=== PATIENT | female | born 1985 | race Caucasian/White ===

== ENCOUNTER 2016-03-10 20:40 | Emergency (ER) | payer OTHER ==
--- NOTE | 2016-03-10 23:22 | DIAGNOSTIC IMAGING REPORT ---
PROCEDURE: CT ABD/PELVIS WITH CONTRAST CLINICAL INDICATION: Abdominal pain and vaginal bleeding, initial encounter. TECHNIQUE: 125 ml of Isovue 300 were injected intravenously and axial images were obtained of the entire abdomen and pelvis with sagittal and coronal reformations. COMPARISON: Pelvic ultrasound 02/24/2015 FINDINGS: ABDOMEN: Lung bases are clear. Heart size is normal. Stomach distended with gastric contents. There is a some prominence of the duodenal sweep. Liver, gallbladder, pancreas, spleen, adrenal glands, kidneys and abdominal aorta are normal. Stool throughout the large bowel. Nonspecific air fluid levels in the small bowel. PELVIS: Appendix is difficult to visualize but appears normal. Obstipation. Uterus, adnexa and bladder are normal. No inflammatory changes or free fluid. Bilateral L5 spondylolysis. IMPRESSION: 1. Distended stomach 2. Obstipation 3. Results discussed with Dr. Lopez All CT scans at this facility use dose modulation, iterative reconstruction, and/or weight-based dosing when appropriate to reduce radiation dose to as low as reasonably achievable.
--- NOTE | 2016-03-11 01:51 | ED ORDER SUMMARY ---
..... Patient: PRAVEEN KISER OrderSheet [facility] VisitID: [id number] [place] [address] 31y, F Registration Date/Time: 03/10/2016 ORDER SHEET Weight: 63.5 kg (stated) Allergies: Morphine and Related GENERAL ORDERS: CBC w Diff Urgent (21:23 03/10/2016 Bev NEWBY) (Ack 21:29 [employer] ER Tech1) (21:33 Daniele R.N.) CMP Urgent (21:03/10/2016 Bev NEWBY) (Ack 21:29 [employer] ER Tech1) (21:33 Daniele R.N.) UA-Culture if indicated Urgent (21:03/10/2016 Bev NEWBY) (Ack 21:29 [employer] ER Tech1) (21:33 Daniele R.N.) Urine Urgent (21:03/10/2016 Bev NEWBY) (Cancelled: Duplicate Order21:24 Bev NEWBY) Urine Drug Screen Urgent (21:23 03/10/2016 Bev NEWBY) (Ack 21:29 [employer] ER Tech1) (21:33 Daniele R.N.) Type & Rh Urgent (21:24 03/10/2016 Bev NEWBY) (Ack 21:30 [employer] ER Tech1) (21:32 Daniele R.N.) Serum Quantitative Urgent (21:24 03/10/2016 Bev NEWBY) (Ack 21:30 [employer] ER Tech1) (21:32 Daniele R.N.) POC - Urine hCG (21:24 03/10/2016 Bev NEWBY) (21:32 Daniele R.N.) - (RPR - syphilis test) (22:24 03/10/2016 Bev NEWBY) (22:34 [employer] ER Tech1) CT Abd/Pel w Cont (No) (chart) Urgent (22:25 03/10/2016 Bev NEWBY) (Ack 22:35 [employer] ER Tech1) (23:02 MCampbell) GC/Chlamydia (Cervix) (swab) Urgent (02:02 03/11/2016 Bev NEWBY) (Ack 2:07 [employer] ER Tech1) (2:07 AMc[employer] ER Tech1) MEDICATION ORDERS: IV FLUIDS: IV NS : initial bolus none -, then 500 mL/hr for 2h (NOW) (21:23 03/10/2016 Bev NEWBY) (21:35 Daniele R.N.) Dilaudid IV 1 mg + 0.5 mg (NOW) (22:24 03/10/2016 Bev NEWBY) (22:43 Daniele R.N.) Zofran IV 4 mg (NOW) (22:24 03/10/2016 Bev NEWBY) (22:42 Daniele R.N.) Dilaudid IV 0.5 mg (HIGH ALERT MEDICATION, NOW) (23:35 03/10/2016 PAOLAollier R.N. verbal order read back to Bev NEWBY) (Ack 23:36 RCollier R.N.) (23:39 RCollier R.N.) Ceftriaxone IV 1 gm/50mL (NOW) (00:10 03/11/2016 Bev NEWBY) (Ack 0:16 RCollier R.N.) (0:24 RCollier R.N.) ORDER SHEET NOTES: [Electronically signed by Alize Cornelius R.N. (02:11 03/11/2016)] [Electronically signed by Joselo Lopez MD (16:43 03/11/2016)] [Electronically locked/signed by Alize Cornelius R.N. (02:11 03/11/2016)]
--- NOTE | 2016-03-11 01:51 | ED NURSING NOTES ---
Clinical Report - Nurses [facility] [address] [place] [address] 03/10/2016 20:41 Patient: PRAVEEN KISER TRIAGE Triage time 20:45 Mar 10 2016. Acuity: LEVEL 3. Chief Complaint: ABDOMINAL PAIN, POSSIBLE CONTRACTIONS and VAGINAL BLEEDING. Alert. LYDIA COMA SCORE: Lydia Coma Scale: 15- eyes open spontaneously (4); best verbal response- oriented x 4 (5); best motor response- obeys commands (6). --20:56 Lon Shields R.N. 20:49 03/10/16. BP: 123/70. HR: 86. RR: 18. O2 saturation: 99% on room air. Temp: 99.1 F. Pain level now: 5/10. Additional comments: Abd cramping. --20:56 Lon Shields R.N. Weight: 63.5 kg stated. Height/Length: 63 inches Per Patient. BMI: 24.8. --20:51 Lon Shields R.N. Medications Vitamins Oral. --20:53 Lon Shields R.N. Allergies Morphine and Related.(itching) --20:54 Lon Shields R.N. Medication/allergy information source: the patient. --20:56 Lon Shields R.N. History Arrived by private vehicle. Historian: patient. Unaccompanied. Primary physician (Raudel Nicholson). ( Pt states that she is 8 weeks and is starting to have abdominal cramping and vaginal bleeding.). Onset. (about 1 hour ago). She has had vomiting (yesterday). Treatment ELECTRICAL RESEARCH ENGINEER: None. PAST MEDICAL HX: There are no known risks or problems associated with current . SOCIAL HX: Light tobacco smoker (cigarette)- less than 1/2 a pack per day. No alcohol use or drug use. No infectious disease exposure. ABUSE ASSESSMENT: No report of abuse. FALL RISK ASSESSMENT: Fall risk assessment completed. No fall risk identified. NUTRITIONAL RISK ASSESSMENT: The nutritional risk assessment revealed no deficiencies. FUNCTIONAL ASSESSMENT: Functional assessment: no impairments noted. LEARNING NEEDS ASSESSMENT: The learning needs assessment revealed no barriers. SKIN INTEGRITY ASSESSMENT: Skin integrity risk assessment completed. No skin integrity risk identified. --20:56 Lon Shields R.N. PROBLEMS: Induced Hypertension. Lumbar Strain. Abdominal Muscle Strain. Kidney Infection. UTI - Urinary Tract Infection. --20:55 Lon Shields R.N. ADDITIONAL SURGERIES: . --20:56 Lon Shields R.N. Interventions ID band on patient. To treatment room. No allergy band on patient. --20:56 Lon Shields R.N. PHYSICAL ASSESSMENT To room via stretcher. GENERAL / NEURO / PSYCH: Alert. Oriented X 4. HEENT: Mucous membranes are pink. RESPIRATORY: Respirations not labored. CVS: Normal heart rate and rhythm. Capillary refill less than 2 seconds. GI / : Abdomen soft. Vaginal bleeding present with clots. SKIN: Skin is warm and dry. --20:57 Lon Shields R.N. NURSING PROGRESS NOTES Reassurance given to the patient. Patient identifiers checked. Call light placed in reach. Side rails up x 2. Bed placed in lowest position. Brakes of bed on. Patient ready for evaluation- chart flagged and ED physician notified. --20:58 Lon Shields R.N. 21:15 03/10/2016 Site #1 started via IV in the right forearm with an 20g angiocath, with aseptic technique and good blood return; two attempts. Blood drawn: rainbow set. Labeled in the presence of the patient and sent to the lab. Saline lock flushed with 10 mL saline. --21:34 Lon Shields R.N. 21:30 03/10/2016 Started bag #1 1000 mL IV Fluids IV NS (Saline); at 500 mL/hr over 2 hour(s) via site #1 via IV pump. Allergies verified and confirmed 5 rights. IV patency established. IV site checked: no pain, redness, or swelling. IV flushed thoroughly pre- and post-medication administration. --21:35 Lon Shields R.N. 8 fr in/out catheterization. During procedure hand hygiene observed and sterile equipment and aseptic technique used. Return of 175 mL kat-colored clear urine. It was a complicated placement. She tolerated procedure well. Patient ID band checked for patient name and birthdate: patient confirmed. Catheterized urine collected with return of kat-colored clear urine; sample sent to lab. Specimen labeled in the presence of the patient. --21:36 Alize Cornelius R.N. Urine test negative. loss control consultant check passed. --21:36 Alize Cornelius R.N. 22:33 03/10/16. Temp: 98.9 F. --22:33 Lon Shields R.N. 22:00 03/10/16. PELVIC EXAM: Pelvic exam performed by ED physician. Assisted by one nurse. Preparation: patient placed in lithotomy position. Procedure: speculum exam. Status post-procedure: she was stable. Total time of assist / procedure: 15 minutes. ( EDMD had to postpone collection of specimens due to increased pain level and intolerance to exam by pt.). --00:15 Alize Cornelius R.N. 22:37 03/10/2016 Zofran (Ondansetron HCl) IVP 4 mg given. via site #1. Allergies verified and confirmed 5 rights. IV patency established. IV site checked: no pain, redness, or swelling. IV flushed thoroughly pre- and post-medication administration. IVP given by RN. --22:42 Lon Shields R.N. 22:42 03/10/2016 Dilaudid (HYDROmorphone HCl PF) IVP 1 mg given over 2 minute(s) via site #1. Allergies verified, confirmed 5 rights and sedative warning given. IV patency established. IV site checked: no pain, redness, or swelling. IV flushed thoroughly pre- and post-medication administration. IVP given by RN. --22:43 Lon Shields R.N. Patient transported to [place] by stretcher with tech. --22:45 Lon Shields R.N. Care transferred and report received. --23:35 Alize Cornelius R.N. 23:39 03/10/2016 Dilaudid (HYDROmorphone HCl PF) IVP 0.5 mg given over 30 minute(s) via site #1. Allergies verified, confirmed 5 rights and sedative warning given to the patient. IV patency established. IV site checked: no pain, redness, or swelling. IV flushed thoroughly pre- and post-medication administration. IVP given by RN. --23:39 Alize Cornelius R.N. 00:12-. PELVIC EXAM: Pelvic exam performed by ED physician. Assisted by one nurse. Preparation: patient placed in lithotomy position. Procedure: speculum and bimanual exam. Few genital lesions noted. Light amount of dark vaginal bleeding noted with clots. Specimens collected and sent to lab: GC and chlamydia. Status post-procedure: she was stable. Total time of assist / procedure: 15 minutes. --00:13 Alize Cornelius R.N. 00:15- pt ambulates to restroom and back to bed with stable gait and in no apparent distress. --00:16 Alize Cornelius R.N. 00:20 03/11/2016 Started 1 gm of Ceftriaxone IVPB in bag #1 50 mL; at 150 mL/hr over 20 minute(s) via site #1 via IV pump. Allergies verified and confirmed 5 rights. IV patency established. IV site checked: no pain, redness, or swelling. IV flushed thoroughly pre- and post-medication administration. --00:24 Alize Cornelius R.N. 00:25 03/11/16. BP: 115/64. HR: 73. RR: 15. O2 saturation: 98% on room air. Godwin-Sanz pain scale: 2/10. --00:25 Alize Cornelius R.N. DISPOSITION / DISCHARGE Condition at departure: improved and stable. No learning barriers present. Discharge instructions provided and reviewed with the patient. Reviewed medication(s) side effects, precautions, dosing and course information. Prescription(s) given to the patient. Patient verbalized understanding. Written instructions provided in Cuban. The patient was discharged home. She left the Emergency Department ambulatory and via ([employer]). --02:08 Alize Cornelius R.N. 02:05 03/11/16. BP: 108/61. HR: 90. RR: 14. O2 saturation: 98% on room air. Temp: 98.6 F (oral). Godwin-Sanz pain scale: 2/10. --02:08 Alize Cornelius R.N. 01:57 03/11/2016 Site #1 removed upon discharge. Catheter intact. Manual pressure and bandage applied. --02:11 Alize Cornelius R.N. Locked/Released at 03/11/2016 2:11 by Alize Cornelius R.N.
--- NOTE | 2016-03-11 01:51 | ED NURSING NOTES ---
Clinical Report - Nurses [facility] [address] [place] [address] 03/10/2016 20:41 Patient: PRAVEEN KISER TRIAGE Triage time 20:45 Mar 10 2016. Acuity: LEVEL 3. Chief Complaint: ABDOMINAL PAIN, POSSIBLE CONTRACTIONS and VAGINAL BLEEDING. Alert. LYDIA COMA SCORE: Lydia Coma Scale: 15- eyes open spontaneously (4); best verbal response- oriented x 4 (5); best motor response- obeys commands (6). --20:56 Lon Shields R.N. 20:49 03/10/16. BP: 123/70. HR: 86. RR: 18. O2 saturation: 99% on room air. Temp: 99.1 F. Pain level now: 5/10. Additional comments: Abd cramping. --20:56 Lon Shields R.N. Weight: 63.5 kg stated. Height/Length: 63 inches Per Patient. BMI: 24.8. --20:51 Lon Shields R.N. Medications Vitamins Oral. --20:53 Lon Shields R.N. Allergies Morphine and Related.(itching) --20:54 Lon Shields R.N. Medication/allergy information source: the patient. --20:56 Lon Shields R.N. History Arrived by private vehicle. Historian: patient. Unaccompanied. Primary physician (Raudel Nicholson). ( Pt states that she is 8 weeks and is starting to have abdominal cramping and vaginal bleeding.). Onset. (about 1 hour ago). She has had vomiting (yesterday). Treatment ENGINEERING SYSTEMS ANALYST: None. PAST MEDICAL HX: There are no known risks or problems associated with current . SOCIAL HX: Light tobacco smoker (cigarette)- less than 1/2 a pack per day. No alcohol use or drug use. No infectious disease exposure. ABUSE ASSESSMENT: No report of abuse. FALL RISK ASSESSMENT: Fall risk assessment completed. No fall risk identified. NUTRITIONAL RISK ASSESSMENT: The nutritional risk assessment revealed no deficiencies. FUNCTIONAL ASSESSMENT: Functional assessment: no impairments noted. LEARNING NEEDS ASSESSMENT: The learning needs assessment revealed no barriers. SKIN INTEGRITY ASSESSMENT: Skin integrity risk assessment completed. No skin integrity risk identified. --20:56 Lon Shields R.N. PROBLEMS: Induced Hypertension. Lumbar Strain. Abdominal Muscle Strain. Kidney Infection. UTI - Urinary Tract Infection. --20:55 Lon Shields R.N. ADDITIONAL SURGERIES: . --20:56 Lon Shields R.N. Interventions ID band on patient. To treatment room. No allergy band on patient. --20:56 Lon Shields R.N. PHYSICAL ASSESSMENT To room via stretcher. GENERAL / NEURO / PSYCH: Alert. Oriented X 4. HEENT: Mucous membranes are pink. RESPIRATORY: Respirations not labored. CVS: Normal heart rate and rhythm. Capillary refill less than 2 seconds. GI / : Abdomen soft. Vaginal bleeding present with clots. SKIN: Skin is warm and dry. --20:57 Lon Shields R.N. NURSING PROGRESS NOTES Reassurance given to the patient. Patient identifiers checked. Call light placed in reach. Side rails up x 2. Bed placed in lowest position. Brakes of bed on. Patient ready for evaluation- chart flagged and ED physician notified. --20:58 Lon Shields R.N. 21:15 03/10/2016 Site #1 started via IV in the right forearm with an 20g angiocath, with aseptic technique and good blood return; two attempts. Blood drawn: rainbow set. Labeled in the presence of the patient and sent to the lab. Saline lock flushed with 10 mL saline. --21:34 Lon Shields R.N. 21:30 03/10/2016 Started bag #1 1000 mL IV Fluids IV NS (Saline); at 500 mL/hr over 2 hour(s) via site #1 via IV pump. Allergies verified and confirmed 5 rights. IV patency established. IV site checked: no pain, redness, or swelling. IV flushed thoroughly pre- and post-medication administration. --21:35 Lon Shields R.N. 8 fr in/out catheterization. During procedure hand hygiene observed and sterile equipment and aseptic technique used. Return of 175 mL kat-colored clear urine. It was a complicated placement. She tolerated procedure well. Patient ID band checked for patient name and birthdate: patient confirmed. Catheterized urine collected with return of kat-colored clear urine; sample sent to lab. Specimen labeled in the presence of the patient. --21:36 Alize Cornelius R.N. Urine test negative. group controller check passed. --21:36 Alize Cornelius R.N. 22:33 03/10/16. Temp: 98.9 F. --22:33 Lon Shields R.N. 22:00 03/10/16. PELVIC EXAM: Pelvic exam performed by ED physician. Assisted by one nurse. Preparation: patient placed in lithotomy position. Procedure: speculum exam. Status post-procedure: she was stable. Total time of assist / procedure: 15 minutes. ( EDMD had to postpone collection of specimens due to increased pain level and intolerance to exam by pt.). --00:15 Alize Cornelius R.N. 22:37 03/10/2016 Zofran (Ondansetron HCl) IVP 4 mg given. via site #1. Allergies verified and confirmed 5 rights. IV patency established. IV site checked: no pain, redness, or swelling. IV flushed thoroughly pre- and post-medication administration. IVP given by RN. --22:42 Lon Shields R.N. 22:42 03/10/2016 Dilaudid (HYDROmorphone HCl PF) IVP 1 mg given over 2 minute(s) via site #1. Allergies verified, confirmed 5 rights and sedative warning given. IV patency established. IV site checked: no pain, redness, or swelling. IV flushed thoroughly pre- and post-medication administration. IVP given by RN. --22:43 Lon Shields R.N. Patient transported to [place] by stretcher with tech. --22:45 Lon Shields R.N. Care transferred and report received. --23:35 Alize Cornelius R.N. 23:39 03/10/2016 Dilaudid (HYDROmorphone HCl PF) IVP 0.5 mg given over 30 minute(s) via site #1. Allergies verified, confirmed 5 rights and sedative warning given to the patient. IV patency established. IV site checked: no pain, redness, or swelling. IV flushed thoroughly pre- and post-medication administration. IVP given by RN. --23:39 Alize Cornelius R.N. 00:12-. PELVIC EXAM: Pelvic exam performed by ED physician. Assisted by one nurse. Preparation: patient placed in lithotomy position. Procedure: speculum and bimanual exam. Few genital lesions noted. Light amount of dark vaginal bleeding noted with clots. Specimens collected and sent to lab: GC and chlamydia. Status post-procedure: she was stable. Total time of assist / procedure: 15 minutes. --00:13 Alize Cornelius R.N. 00:15- pt ambulates to restroom and back to bed with stable gait and in no apparent distress. --00:16 Alize Cornelius R.N. 00:20 03/11/2016 Started 1 gm of Ceftriaxone IVPB in bag #1 50 mL; at 150 mL/hr over 20 minute(s) via site #1 via IV pump. Allergies verified and confirmed 5 rights. IV patency established. IV site checked: no pain, redness, or swelling. IV flushed thoroughly pre- and post-medication administration. --00:24 Alize Cornelius R.N. 00:25 03/11/16. BP: 115/64. HR: 73. RR: 15. O2 saturation: 98% on room air. Godwin-Sanz pain scale: 2/10. --00:25 Alize Cornelius R.N. DISPOSITION / DISCHARGE Condition at departure: improved and stable. No learning barriers present. Discharge instructions provided and reviewed with the patient. Reviewed medication(s) side effects, precautions, dosing and course information. Prescription(s) given to the patient. Patient verbalized understanding. Written instructions provided in Nicaraguan. The patient was discharged home. She left the Emergency Department ambulatory and via ([employer]). --02:08 Alize Cornelius R.N. 02:05 03/11/16. BP: 108/61. HR: 90. RR: 14. O2 saturation: 98% on room air. Temp: 98.6 F (oral). Godwin-Sanz pain scale: 2/10. --02:08 Alize Cornelius R.N. 01:57 03/11/2016 Site #1 removed upon discharge. Catheter intact. Manual pressure and bandage applied. --02:11 Alize Cornelius R.N. Locked/Released at 03/11/2016 2:11 by Alize Cornelius R.N.
--- NOTE | 2016-03-11 01:51 | ED ORDER SUMMARY ---
..... Patient: PRAVEEN KISER OrderSheet [facility] VisitID: [id number] [place] [address] 31y, F Registration Date/Time: 03/10/2016 ORDER SHEET Weight: 63.5 kg (stated) Allergies: Morphine and Related GENERAL ORDERS: CBC w Diff Urgent (21:23 03/10/2016 Bev NEWBY) (Ack 21:29 [employer] ER Tech1) (21:33 Daniele R.N.) CMP Urgent (21:03/10/2016 Bev NEWBY) (Ack 21:29 [employer] 2000 ER Tech1) (21:33 Daniele R.N.) UA-Culture if indicated Urgent (21:03/10/2016 Bev NEWBY) (Ack 21:29 [employer] 2000 ER Tech1) (21:33 Daniele R.N.) Urine Urgent (21:03/10/2016 Bev NEWBY) (Cancelled: Duplicate Order21:24 Bev NEWBY) Urine Drug Screen Urgent (21:23 03/10/2016 Bev NEWBY) (Ack 21:29 [employer] 2000 ER Tech1) (21:33 Daniele R.N.) Type & Rh Urgent (21:24 03/10/2016 Bev NEWBY) (Ack 21:30 [employer] 2000 ER Tech1) (21:32 Daniele R.N.) Serum Quantitative Urgent (21:24 03/10/2016 Bev NEWBY) (Ack 21:30 [employer] 2000 ER Tech1) (21:32 Daniele R.N.) POC - Urine hCG (21:24 03/10/2016 Bev NEWBY) (21:32 Daniele R.N.) - (RPR - syphilis test) (22:24 03/10/2016 Bev NEWBY) (22:34 [employer] ER Tech1) CT Abd/Pel w Cont (No) (chart) Urgent (22:25 03/10/2016 Bev NEWBY) (Ack 22:35 [employer] ER Tech1) (23:02 MCampbell) GC/Chlamydia (Cervix) (swab) Urgent (02:02 03/11/2016 Bev NEWBY) (Ack 2:07 [employer] ER Tech1) (2:07 AMcQuoid ER Tech1) MEDICATION ORDERS: IV FLUIDS: IV NS : initial bolus none -, then 500 mL/hr for 2h (NOW) (21:23 03/10/2016 Bev NEWBY) (21:35 Daniele R.N.) Dilaudid IV 1 mg + 0.5 mg (NOW) (22:24 03/10/2016 Bev NEWBY) (22:43 Daniele R.N.) Zofran IV 4 mg (NOW) (22:24 03/10/2016 Bev NEWBY) (22:42 Daniele R.N.) Dilaudid IV 0.5 mg (HIGH ALERT MEDICATION, NOW) (23:35 03/10/2016 PAOLAollier R.N. verbal order read back to Bev NEWBY) (Ack 23:36 RCollier R.N.) (23:39 RCollier R.N.) Ceftriaxone IV 1 gm/50mL (NOW) (00:10 03/11/2016 Bev NEWBY) (Ack 0:16 RCollier R.N.) (0:24 RCollier R.N.) ORDER SHEET NOTES: [Electronically signed by Alize Cornelius R.N. (02:11 03/11/2016)] [Electronically signed by Joselo Lopez MD (16:43 03/11/2016)] [Electronically locked/signed by Alize Cornelius R.N. (02:11 03/11/2016)]
--- NOTE | 2016-03-11 01:51 | ED CLINICAL REPORT ---
Clinical Report - Physicians/Mid Levels [facility] [address] [place] [address] 03/10/2016 20:41 Patient: PRAVEEN KISER Time Seen: 21:05. Arrived- By private vehicle. Historian- patient. HISTORY OF PRESENT ILLNESS Chief Complaint: ABDOMINAL PAIN and Vaginal Bleeding and 8 WEEK . At its maximum, severity described as severe. When seen in the E.D., severity described as severe. This started Mild pain all day. Bleeding and abdominal pain marked increase 1 hour ago; Vomiting - yesterday Fever - 7 days 101 now better associated with respiratory symptoms Pt is concerned that her significant other is unfaithful and that she might have an STD exposure and is still present. It was gradual in onset (recent marked increase). It is described as "pain" and sharp and it is described as located in the lower abdomen. The patient has had nausea. No vomiting. ( Care arrainged: Has not had first visit.). Recent medical care: The patient was seen recently by a health care provider. ( Seen at [facility] - had a positive test there is waiting for her first OB appointment). REVIEW OF SYSTEMS 7. Para 3. Abortions 3. No constipation, black stools, hematemesis, difficulty with urination or pain with urination. No headache, blurred vision, chest pain, difficulty breathing or back pain. The patient has had fever, a cough and skin rash. PAST HISTORY PCP: Bharat (Prov OB) Ops: x 3 Hosp: None Illness: PIH, pre-ecclampsia previously. SOCIAL HISTORY Current some days smoker. History of drug use: methamphetamines. ADDITIONAL NOTES The nursing notes have been reviewed. PHYSICAL EXAM Vital Signs: 03/11/2016 02:05 BP: 108/61. HR: 90. RR: 14. O2 saturation: 98%. Temp: 98.6 F. Godwin-Sanz pain scale: 04/03. 03/11/2016 00:25 BP: 115/64. HR: 73. RR: 15. O2 saturation: 98%. Godwin-Sanz pain scale: 04/03. 03/10/2016 22:33 Temp: 98.9 F. 03/10/2016 20:49 BP: 123/70. HR: 86. RR: 18. O2 saturation: 99%. Temp: 99.1 F. Pain level now: 5/10. Appearance: Patient in severe distress. (Crying). Eyes: Eyes normal inspection. ENT: Pharynx normal. Neck: Normal inspection. CVS: Heart sounds normal. Respiratory: No respiratory distress. Breath sounds normal. Abdomen: Moderate tenderness in the periumbilical area, right lower quadrant and suprapubic area. Guarding present in the right lower quadrant. Rebound tenderness in the right lower quadrant. Back: No CVA tenderness. : Vaginal bleeding, via the cervical os (No active beeding. There is dark blood in the posterior fornix). Severe right adnexal tenderness; uterine tenderness; moderate left adnexal tenderness. 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 Skin: Skin warm. Normal skin color. Skin rash (pick renteria on the face). Extremities: Extremities exhibit normal ROM. No lower extremity edema. LABS, X-RAYS, AND EKG Abdominal CT: PROCEDURE: CT ABD/PELVIS WITH CONTRAST CLINICAL INDICATION: Abdominal pain and vaginal bleeding, initial encounter. TECHNIQUE: 125 ml of Isovue 300 were injected intravenously and axial images were obtained of the entire abdomen and pelvis with sagittal and coronal reformations. COMPARISON: Pelvic ultrasound 02/24/2015 FINDINGS: ABDOMEN: Lung bases are clear. Heart size is normal. Stomach distended with gastric contents. There is a some prominence of the duodenal sweep. Liver, gallbladder, pancreas, spleen, adrenal glands, kidneys and abdominal aorta are normal. Stool throughout the large bowel. Nonspecific air fluid levels in the small bowel. PELVIS: Appendix is difficult to visualize but appears normal. Obstipation. Uterus, adnexa and bladder are normal. No inflammatory changes or free fluid. Bilateral L5 spondylolysis. IMPRESSION: 1. Distended stomach 2. Obstipation 3. Results discussed with Dr. Lopez All CT scans at this facility use dose modulation, iterative reconstruction, and/or weight-based dosing when appropriate to reduce radiation dose to as low as reasonably achievable. Electronically Final signed by:Go Jasso MD 03/10/2016 11:22:29 PM. Laboratory Tests: UA-Culture if indicated: (HEVER: 03/10/2016 21:30) ( MsgRcvd 03/10/2016 22:06) Final results Test Result Flag Units (Reference) URINE COLOR YELLOW URINE APPEARANCE CLEAR URINE GLUCOSE NEGATIVE (NEGATIVE) URINE BILIRUBIN NEGATIVE (NEGATIVE) URINE KETONE TRACE (NEGATIVE) URINE SPECIFIC GRAVITY 1.025 (1.010-1.030) URINE PH 5.5 (5.0-8.0) URINE PROTEIN NEGATIVE (NEGATIVE) URINE UROBILINOGEN 0.2 EU/dL (0.2-1.0) URINE NITRITE NEGATIVE (NEGATIVE) URINE BLOOD NEGATIVE (NEGATIVE) URINE LEUK ESTERASE NEGATIVE (NEGATIVE) URINE RBC 0-1 rbc/hpf (0-1) URINE WBC 3-5 wbc/hpf (0-1) URINE EPITHELIAL CELLS 1-3 EPI/hpf (0-5) URINE BACTERIA TRACE (<1+) (NONE SEEN) URINE COMMENT CULT NOT INDICATED URINE CULTURES ARE SET-UP BASED ON THE FOLLOWING CRITERIA:POSITIVE NITRITEPOSITIVE LEUKOCYTE ESTERASEGREATER THAN 10 WHITE BLOOD CELLSMODERATE (2+) OR GREATER BACTERIA CBC w Diff: (HEVER: 03/10/2016 21:00) ( MsgRcvd 03/10/2016 22:29) Final results Test Result Flag Units (Reference) WHITE BLOOD COUNT 8.3 K/uL (4.5-11.5) RED BLOOD COUNT 3.82 L M/uL (4.00-5.20) HEMOGLOBIN 7.2 L gm/dL (12.0-16.0) HEMATOCRIT 23.2 L % (36.0-46.0) MEAN CELL VOLUME 61 L fL (80-100) MEAN CORPUSCULAR HGB 19 L pg (26-34) MEAN CORPUSCULAR HGB CONC 31 g/dL (31-37) RED CELL DISTRIBUTION WIDTH 20.0 H % (11.6-14.8) PLATELET COUNT 378 K/uL (150-400) LYMPH % 33.3 % (25-40) MONO % 4.4 % (3-14) GRANULOCYTE % 62.3 (53-90) RBC MORPHOLOGY 3+ HYPOCHROMIA~~2+ MICROCYTOSIS~~2+ ANISOCYTOSIS Serum Quantitative: (HEVER: 03/10/2016 21:00) ( MsgRcvd 03/10/2016 22:03) Final results Test Result Flag Units (Reference) BETA HCG, QUANTITATIVE <1 mIU/mL REFERENCE RANGE:Adult Males: <2 mIU/mLNon- Females: <6 mIU/mL Females:Approximate Approximate hCGGestational Age Range (mIU/mL) 0-1 week 0-501-2 weeks 40-3002-3 weeks 100-03788-3 weeks 500-06498-1 months 5,000-200,0002-3 months 10,000-100,0002nd trimester 3,000-50,0003rd trimester 1,000-50,000 Urine Drug Screen: (HEVER: 03/10/2016 21:30) ( MsgRcvd 03/10/2016 22:20) Final results Test Result Flag Units (Reference) AMPHETAMINE/METHAMPHETAMINE POSITIVE H (NEGATIVE) BARBITURATE NEGATIVE (NEGATIVE) BENZODIAZEPINE NEGATIVE (NEGATIVE) CANNABINOID NEGATIVE (NEGATIVE) COCAINE NEGATIVE (NEGATIVE) ECSTASY NEGATIVE (NEGATIVE) METHADONE NEGATIVE (NEGATIVE) OPIATE NEGATIVE (NEGATIVE) The urine drug screen is a qualitative screening test fordrug overdose and abuse. All screen results should beconsidered as presumptive.Drugs screened for are as follows:BenzodiazepinesCocaineAmphetamines/MetamphetaminesTHC (Tetrahydrocannabinol)OpiatesBarbituratesEcstasyMethadonePositive results are unconfirmed. For confirmation, notifythe lab for the specimen to be sent to the reference lab.All confirmations must be performed by a differentmethodology.The ingestion of natural herbal and plant productscontaining Ephedra/Ephedra metabolites can produce in urineone or more substances capable of cross reacting withamphetamine/methamphetamine immunoassays. These testsprovide a preliminary result only. A more specificalternative chemical method must be used to obtain aconfirmed analytical result. CMP: (HEVER: 03/10/2016 21:00) ( MsgRcvd 03/10/2016 21:49) Final results Test Result Flag Units (Reference) GLUCOSE 97 mg/dL (70-110) BUN 15 mg/dL (7-18) CREATININE 0.7 mg/dL (0.6-1.3) Estimated GFR >60 mL/min Estimated GFR- >60 mL/min Note: Persistent reduction over 3 months in eGFR<60 mL/min/1.73 m2 defines CKD. Patients with eGFR values>=60 mL/min/1.73 m2 may also have CKD if evidence ofpersistent proteinuria. Additional information may be foundat www.kidney.org. SODIUM 142 mmol/L (136-145) POTASSIUM 4.0 mmol/L (3.5-5.1) CHLORIDE 110 H mmol/L (98-107) CARBON DIOXIDE 25 mmol/L (21-32) CALCIUM 8.1 L mg/dL (8.5-10.1) TOTAL PROTEIN 7.2 g/dL (6.4-8.2) ALBUMIN 3.0 L g/dL (3.3-5.0) BILIRUBIN, TOTAL 0.2 mg/dL (0.0-1.0) ALKALINE PHOSPHATASE 98 U/L (46-116) AST (SGOT) 21 U/L (15-37) ALT (SGPT) 31 U/L (12-78) Type & Rh: (HEVER: 03/10/2016 21:00) ( MsgRcvd 03/10/2016 21:56) Final results Test Result Flag Units (Reference) PATIENT BLOOD TYPE O Positive . PROGRESS AND PROCEDURES Course of Care: Pre test DDX: Herpes, STD,ectopic, appy The patient is not . She has probably had a miscarriage some time in the last 6-8 weeks Her HCG is 0 so it is not a recent event. She has peritoneal signs. This is most likely PID. It does not appear to be appendicitis. She also has anemia. CLINICAL IMPRESSION Acute abdominal pain of unknown cause. Acute pelvic inflammatory disease. ANEMIA GENITAL LESION. INSTRUCTIONS (YOU MAY HAVE AN STD, I AM TREATING YOU FOR PID RECHECK IN ED IN 12 HOURS UNLESS BETTER. YOU ARE NO LONGER NO SEX UNTIL COMPLETELY HEALED IMMEDIATE RECHECK IF YOU ARE DOING WORSE.). Prescription Medications: Oxycodone/APAP 5 mg/325 mg: take 1 tablet orally every 4 hours as needed for pain. Dispense fifteen (15). No refill. Doxycycline 100 mg: Take 1 capsule orally every 12 hours for 10 days. No refill. Follow-up: Follow up with your doctor in two days. Reason for referral: IF UNABLE COME TO ED. Understanding of the discharge instructions verbalized by patient. (Electronically signed by Joselo Lopez MD 03/11/2016 16:43) Addenda for PRAVEEN KISER VisitID: [id number] Date: 03/10/2016 03/11/2016 2:44 phone number verified for culture results. Pt states to use her number, as listed on face sheet, as her primary contact and her Sig Alfonso Barraza [phone] as secondary. Pt requests that return call back request may be left on voice mail, but that no additional information be given to any one besides her. (Electronically signed by Alize Cornelius R.N. - 03/11/2016 2:44)
--- NOTE | 2016-03-11 16:44 | ED MAR SUMMARY ---
..... Medication Administration Record Formerly [facility] [address] [place] [address] Patient: PRAVEEN KISER Visit ID: [id number] 31y, F Weight: 63.5 kg Height/Length: 63 in BMI: 24.8 ALLERGIES: Morphine and Related Start 21:30 03/10/2016 Lon Shields R.N. Medication Administered: IV NS (SALINE), Dose: IV Fluids over 2 hour(s), Rate: 500 mL/hr, Dispensed: 1000 mL bag, Site: #1 right forearm. Medication Ordered: IV NS : initial bolus none -, then 500 mL/hr for 2h (NOW). Given 22:37 03/10/2016 Lon Shields R.N. Medication Administered: ZOFRAN [IVP] (ONDANSETRON HCL), Dose: 4 mg IVP, Site: #1 right forearm. Medication Ordered: Zofran IV 4 mg (NOW). Given 22:42 03/10/2016 Lon Shields R.N. Medication Administered: DILAUDID [IVP] (HYDROMORPHONE HCL PF), Dose: 1 mg IVP over 2 minute(s), Site: #1 right forearm. Medication Ordered: Dilaudid IV 1 mg + 0.5 mg (NOW). Given 23:39 03/10/2016 Alize Cornelius R.N. Medication Administered: DILAUDID [IVP] (HYDROMORPHONE HCL PF), Dose: 0.5 mg IVP over 30 minute(s), Site: #1 right forearm. Medication Ordered: Dilaudid IV 0.5 mg (HIGH ALERT MEDICATION, NOW). Start 00:20 03/11/2016 Alize Cornelius R.N. Medication Administered: CEFTRIAXONE [IVPB], Dose: 1 gm IVPB over 20 minute(s), Rate: 150 mL/hr, Dispensed: 50 mL bag, Site: #1 right forearm. Medication Ordered: Ceftriaxone IV 1 gm/50mL (NOW).
--- NOTE | 2016-03-11 16:44 | ED MED RECONCILIATION SUMMARY ---
Patient: PRAVEEN KISER Medication Reconciliation Report [facility] VisitID: [id number] [place] [address] 31y, F Registration Date/Time: 03/10/2016 Weight: 63.5 kg Height/Length: 63 in. BMI: 24.8 ALLERGIES: Morphine and Related The patient's Home Medications are listed below: THE FOLLOWING MEDICATIONS NEED TO BE RECONCILED: Vitamins Oral The source(s) of the original Home Medication information: patient The following Medications were given to the patient in the Emergency Department: IV NS IV Fluids bolus 0, then 500 mL/hr, administered: 03/10/2016 9:30:00 PM Zofran [IVP] IVP 4 mg, administered: 03/10/2016 10:37:00 PM Dilaudid [IVP] IVP 1 mg, administered: 03/10/2016 10:42:00 PM Dilaudid [IVP] IVP 0.5 mg, administered: 03/10/2016 11:39:00 PM Ceftriaxone [IVPB] IVPB bolus 0, then 1 gm 150 mL/hr, administered: 03/11/2016 12:20:00 AM The following Medications were prescribed to the patient: Oxycodone/APAP 5 mg/325 mg: take 1 tablet orally every 4 hours as needed for pain. Dispense fifteen (15). No refill. -- Joselo Lopez MD Doxycycline 100 mg: Take 1 capsule orally every 12 hours for 10 days. No refill. -- Joselo Lopez MD
--- NOTE | 2016-03-11 16:44 | ED DISCHARGE INSTRUCTIONS ---
Patient: PRAVEEN KISER General Instructions [facility] VisitID: [id number] [place] [address] 31y, F Registration Date/Time: 03/10/2016 Acute abdominal pain of unknown cause. Acute pelvic inflammatory disease. ANEMIA GENITAL LESION. INSTRUCTIONS (YOU MAY HAVE AN STD, I AM TREATING YOU FOR PID RECHECK IN ED IN 12 HOURS UNLESS BETTER. YOU ARE NO LONGER NO SEX UNTIL COMPLETELY HEALED IMMEDIATE RECHECK IF YOU ARE DOING WORSE.). Prescription Medications: Oxycodone/APAP 5 mg/325 mg: take 1 tablet orally every 4 hours as needed for pain. Dispense fifteen (15). No refill. Doxycycline 100 mg: Take 1 capsule orally every 12 hours for 10 days. No refill. Follow-up: Follow up with your doctor in two days. Reason for referral: IF UNABLE COME TO ED. Understanding of the discharge instructions verbalized by patient. ADDITIONAL INFORMATION Pelvic Inflammatory Disease Pelvic Inflammatory Disease (PID) is an infection of the female organs (uterus, ovary, or Fallopian tubes). This is most often the result of a sexually transmitted disease (STD). Sometimes, PID can be due to an overgrowth of normal bacteria and not caused by an STD. Whatever its cause, PID is a serious problem. It can lead to infertility (inability to become ) unless it is treated promptly. Home Care: Take all of the medicine prescribed, even if you start to feel better before taking all the pills. You may use acetaminophen (Tylenol) or ibuprofen (Motrin, Advil) to control pain, unless another pain medicine was prescribed. [NOTE: If you have chronic liver or kidney disease or ever had a stomach ulcer or GI bleeding, talk with your doctor before using these medicines.] Your sexual partner should contact his own doctor or go to the Public Health Department to be examined. If his test is positive or if he is having symptoms of discharge or burning when passing urine, he should be treated, too. Avoid sexual activity until both you and your partner have finished taking all of the antibiotic medicine, and your doctor has told you that you are cured. Learn about safe sex practices and use these in the future. The safest sex is with a partner who has tested negative and only has sex with you. Condoms offer protection from spreading some sexually transmitted diseases including Gonorrhea, Chlamydia and HIV, but are not a guarantee. Follow Up with your doctor or as advised by our staff. If a culture test was taken, you may call us in three days for the results, or as directed. Another culture test should be taken 4-6 weeks after treatment to be sure the infection has cleared. Follow up with your doctor or the Public Health Department for complete STD screening, including HIV testing. For more information about STD's, contact the National STD Hotline: . Get Prompt Medical Attention if any of the following occur: No improvement after three days of treatment New or increasing lower abdominal pain or back pain Unexpected vaginal bleeding Weakness, dizziness or fainting Repeated vomiting Inability to urinate due to pain Rash or joint pain Painful open sores around the outer vagina Enlarged painful lymph nodes (lumps) in the groin Oxycodone Hydrochloride, Acetaminophen Oral tablet What is this medicine? ACETAMINOPHEN; OXYCODONE (a set a VIVIANA raul fen; ox i KOE done) is a pain reliever. It is used to treat mild to moderate pain. How should I use this medicine? Take this medicine by mouth with a full glass of water. Follow the directions on the prescription label. Take your medicine at regular intervals. Do not take your medicine more often than directed. Talk to your medical physics professor regarding the use of this medicine in children. Special care may be needed. Patients over 65 years old may have a stronger reaction and need a smaller dose. What side effects may I notice from receiving this medicine? Side effects that you should report to your doctor or health medicare contact specialist as soon as possible: allergic reactions like skin rash, itching or hives, swelling of the face, lips, or tongue breathing difficulties, wheezing confusion light headedness or fainting spells severe stomach pain yellowing of the skin or the whites of the eyes Side effects that usually do not require medical attention (report to your doctor or health medicare contact specialist if they continue or are bothersome): dizziness drowsiness nausea vomiting What may interact with this medicine? alcohol antihistamines barbiturates like amobarbital, butalbital, butabarbital, methohexital, pentobarbital, phenobarbital, thiopental, and secobarbital benztropine drugs for bladder problems like solifenacin, trospium, oxybutynin, tolterodine, hyoscyamine, and methscopolamine drugs for breathing problems like ipratropium and tiotropium drugs for certain stomach or intestine problems like propantheline, homatropine methylbromide, glycopyrrolate, atropine, belladonna, and dicyclomine general anesthetics like etomidate, ketamine, nitrous oxide, propofol, desflurane, enflurane, halothane, isoflurane, and sevoflurane medicines for depression, anxiety, or psychotic disturbances medicines for sleep muscle relaxants naltrexone narcotic medicines (opiates) for pain phenothiazines like perphenazine, thioridazine, chlorpromazine, mesoridazine, fluphenazine, prochlorperazine, promazine, and trifluoperazine scopolamine tramadol trihexyphenidyl What if I miss a dose? If you miss a dose, take it as soon as you can. If it is almost time for your next dose, take only that dose. Do not take double or extra doses. Where should I keep my medicine? Keep out of the reach of children. This medicine can be abused. Keep your medicine in a safe place to protect it from theft. Do not share this medicine with anyone. Selling or giving away this medicine is dangerous and against the law. Store at room temperature between 20 and 25 degrees C (68 and 77 degrees F). Keep container tightly closed. Protect from light. This medicine may cause accidental overdose and if it is taken by other adults, children, or pets. Flush any unused medicine down the toilet to reduce the chance of harm. Do not use the medicine after the expiration date. What should I tell my health care provider before I take this medicine? They need to know if you have any of these conditions: brain tumor Crohn's disease, inflammatory bowel disease, or ulcerative colitis drink more than 3 alcohol containing drinks per day drug abuse or addiction head injury heart or circulation problems kidney disease or problems going to the bathroom liver disease lung disease, asthma, or breathing problems an unusual or allergic reaction to acetaminophen, oxycodone, other opioid analgesics, other medicines, foods, dyes, or preservatives or trying to get breast-feeding What should I watch for while using this medicine? Tell your doctor or health medicare contact specialist if your pain does not go away, if it gets worse, or if you have new or a different type of pain. You may develop tolerance to the medicine. Tolerance means that you will need a higher dose of the medication for pain relief. Tolerance is normal and is expected if you take this medicine for a long time. Do not suddenly stop taking your medicine because you may develop a severe reaction. Your body becomes used to the medicine. This does NOT mean you are addicted. Addiction is a behavior related to getting and using a drug for a non-medical reason. If you have pain, you have a medical reason to take pain medicine. Your doctor will tell you how much medicine to take. If your doctor wants you to stop the medicine, the dose will be slowly lowered over time to avoid any side effects. You may get drowsy or dizzy. Do not drive, use machinery, or do anything that needs mental alertness until you know how this medicine affects you. Do not stand or sit up quickly, especially if you are an older patient. This reduces the risk of dizzy or fainting spells. Alcohol may interfere with the effect of this medicine. Avoid alcoholic drinks. There are different types of narcotic medicines (opiates) for pain. If you take more than one type at the same time, you may have more side effects. Give your health care provider a list of all medicines you use. Your doctor will tell you how much medicine to take. Do not take more medicine than directed. Call emergency for help if you have problems breathing. The medicine will cause constipation. Try to have a bowel movement at least every 2 to 3 days. If you do not have a bowel movement for 3 days, call your doctor or health medicare contact specialist. Do not take Tylenol (acetaminophen) or medicines that have acetaminophen with this medicine. Too much acetaminophen can be very dangerous. Many nonprescription medicines contain acetaminophen. Always read the labels carefully to avoid taking more acetaminophen. You have been given the following additional information: Pelvic Inflammatory Disease Oxycodone Hydrochloride, Acetaminophen Oral tablet (Electronically signed by Joselo Lopez MD 03/11/2016 16:43)
--- NOTE | 2016-03-11 16:44 | ED DISCHARGE INSTRUCTIONS ---
Patient: PRAVEEN KISER General Instructions [facility] VisitID: [id number] [place] [address] 31y, F Registration Date/Time: 03/10/2016 Acute abdominal pain of unknown cause. Acute pelvic inflammatory disease. ANEMIA GENITAL LESION. INSTRUCTIONS (YOU MAY HAVE AN STD, I AM TREATING YOU FOR PID RECHECK IN ED IN 12 HOURS UNLESS BETTER. YOU ARE NO LONGER NO SEX UNTIL COMPLETELY HEALED IMMEDIATE RECHECK IF YOU ARE DOING WORSE.). Prescription Medications: Oxycodone/APAP 5 mg/325 mg: take 1 tablet orally every 4 hours as needed for pain. Dispense fifteen (15). No refill. Doxycycline 100 mg: Take 1 capsule orally every 12 hours for 10 days. No refill. Follow-up: Follow up with your doctor in two days. Reason for referral: IF UNABLE COME TO ED. Understanding of the discharge instructions verbalized by patient. ADDITIONAL INFORMATION Pelvic Inflammatory Disease Pelvic Inflammatory Disease (PID) is an infection of the female organs (uterus, ovary, or Fallopian tubes). This is most often the result of a sexually transmitted disease (STD). Sometimes, PID can be due to an overgrowth of normal bacteria and not caused by an STD. Whatever its cause, PID is a serious problem. It can lead to infertility (inability to become ) unless it is treated promptly. Home Care: Take all of the medicine prescribed, even if you start to feel better before taking all the pills. You may use acetaminophen (Tylenol) or ibuprofen (Motrin, Advil) to control pain, unless another pain medicine was prescribed. [NOTE: If you have chronic liver or kidney disease or ever had a stomach ulcer or GI bleeding, talk with your doctor before using these medicines.] Your sexual partner should contact his own doctor or go to the Public Health Department to be examined. If his test is positive or if he is having symptoms of discharge or burning when passing urine, he should be treated, too. Avoid sexual activity until both you and your partner have finished taking all of the antibiotic medicine, and your doctor has told you that you are cured. Learn about safe sex practices and use these in the future. The safest sex is with a partner who has tested negative and only has sex with you. Condoms offer protection from spreading some sexually transmitted diseases including Gonorrhea, Chlamydia and HIV, but are not a guarantee. Follow Up with your doctor or as advised by our staff. If a culture test was taken, you may call us in three days for the results, or as directed. Another culture test should be taken 4-6 weeks after treatment to be sure the infection has cleared. Follow up with your doctor or the Public Health Department for complete STD screening, including HIV testing. For more information about STD's, contact the National STD Hotline: . Get Prompt Medical Attention if any of the following occur: No improvement after three days of treatment New or increasing lower abdominal pain or back pain Unexpected vaginal bleeding Weakness, dizziness or fainting Repeated vomiting Inability to urinate due to pain Rash or joint pain Painful open sores around the outer vagina Enlarged painful lymph nodes (lumps) in the groin Oxycodone Hydrochloride, Acetaminophen Oral tablet What is this medicine? ACETAMINOPHEN; OXYCODONE (a set a VIVIANA raul fen; ox i KOE done) is a pain reliever. It is used to treat mild to moderate pain. How should I use this medicine? Take this medicine by mouth with a full glass of water. Follow the directions on the prescription label. Take your medicine at regular intervals. Do not take your medicine more often than directed. Talk to your ergonomist regarding the use of this medicine in children. Special care may be needed. Patients over 65 years old may have a stronger reaction and need a smaller dose. What side effects may I notice from receiving this medicine? Side effects that you should report to your doctor or health career services manager as soon as possible: allergic reactions like skin rash, itching or hives, swelling of the face, lips, or tongue breathing difficulties, wheezing confusion light headedness or fainting spells severe stomach pain yellowing of the skin or the whites of the eyes Side effects that usually do not require medical attention (report to your doctor or health career services manager if they continue or are bothersome): dizziness drowsiness nausea vomiting What may interact with this medicine? alcohol antihistamines barbiturates like amobarbital, butalbital, butabarbital, methohexital, pentobarbital, phenobarbital, thiopental, and secobarbital benztropine drugs for bladder problems like solifenacin, trospium, oxybutynin, tolterodine, hyoscyamine, and methscopolamine drugs for breathing problems like ipratropium and tiotropium drugs for certain stomach or intestine problems like propantheline, homatropine methylbromide, glycopyrrolate, atropine, belladonna, and dicyclomine general anesthetics like etomidate, ketamine, nitrous oxide, propofol, desflurane, enflurane, halothane, isoflurane, and sevoflurane medicines for depression, anxiety, or psychotic disturbances medicines for sleep muscle relaxants naltrexone narcotic medicines (opiates) for pain phenothiazines like perphenazine, thioridazine, chlorpromazine, mesoridazine, fluphenazine, prochlorperazine, promazine, and trifluoperazine scopolamine tramadol trihexyphenidyl What if I miss a dose? If you miss a dose, take it as soon as you can. If it is almost time for your next dose, take only that dose. Do not take double or extra doses. Where should I keep my medicine? Keep out of the reach of children. This medicine can be abused. Keep your medicine in a safe place to protect it from theft. Do not share this medicine with anyone. Selling or giving away this medicine is dangerous and against the law. Store at room temperature between 20 and 25 degrees C (68 and 77 degrees F). Keep container tightly closed. Protect from light. This medicine may cause accidental overdose and if it is taken by other adults, children, or pets. Flush any unused medicine down the toilet to reduce the chance of harm. Do not use the medicine after the expiration date. What should I tell my health care provider before I take this medicine? They need to know if you have any of these conditions: brain tumor Crohn's disease, inflammatory bowel disease, or ulcerative colitis drink more than 3 alcohol containing drinks per day drug abuse or addiction head injury heart or circulation problems kidney disease or problems going to the bathroom liver disease lung disease, asthma, or breathing problems an unusual or allergic reaction to acetaminophen, oxycodone, other opioid analgesics, other medicines, foods, dyes, or preservatives or trying to get breast-feeding What should I watch for while using this medicine? Tell your doctor or health career services manager if your pain does not go away, if it gets worse, or if you have new or a different type of pain. You may develop tolerance to the medicine. Tolerance means that you will need a higher dose of the medication for pain relief. Tolerance is normal and is expected if you take this medicine for a long time. Do not suddenly stop taking your medicine because you may develop a severe reaction. Your body becomes used to the medicine. This does NOT mean you are addicted. Addiction is a behavior related to getting and using a drug for a non-medical reason. If you have pain, you have a medical reason to take pain medicine. Your doctor will tell you how much medicine to take. If your doctor wants you to stop the medicine, the dose will be slowly lowered over time to avoid any side effects. You may get drowsy or dizzy. Do not drive, use machinery, or do anything that needs mental alertness until you know how this medicine affects you. Do not stand or sit up quickly, especially if you are an older patient. This reduces the risk of dizzy or fainting spells. Alcohol may interfere with the effect of this medicine. Avoid alcoholic drinks. There are different types of narcotic medicines (opiates) for pain. If you take more than one type at the same time, you may have more side effects. Give your health care provider a list of all medicines you use. Your doctor will tell you how much medicine to take. Do not take more medicine than directed. Call emergency for help if you have problems breathing. The medicine will cause constipation. Try to have a bowel movement at least every 2 to 3 days. If you do not have a bowel movement for 3 days, call your doctor or health career services manager. Do not take Tylenol (acetaminophen) or medicines that have acetaminophen with this medicine. Too much acetaminophen can be very dangerous. Many nonprescription medicines contain acetaminophen. Always read the labels carefully to avoid taking more acetaminophen. You have been given the following additional information: Pelvic Inflammatory Disease Oxycodone Hydrochloride, Acetaminophen Oral tablet (Electronically signed by Joselo Lopez MD 03/11/2016 16:43)
--- NOTE | 2016-03-11 16:44 | ED MAR SUMMARY ---
..... Medication Administration Record [facility] [address] [place] [address] Patient: PRAVEEN KISER Visit ID: [id number] 31y, F Weight: 63.5 kg Height/Length: 63 in BMI: 24.8 ALLERGIES: Morphine and Related Start 21:30 03/10/2016 Lon Shields R.N. Medication Administered: IV NS (SALINE), Dose: IV Fluids over 2 hour(s), Rate: 500 mL/hr, Dispensed: 1000 mL bag, Site: #1 right forearm. Medication Ordered: IV NS : initial bolus none -, then 500 mL/hr for 2h (NOW). Given 22:37 03/10/2016 Lon Shields R.N. Medication Administered: ZOFRAN [IVP] (ONDANSETRON HCL), Dose: 4 mg IVP, Site: #1 right forearm. Medication Ordered: Zofran IV 4 mg (NOW). Given 22:42 03/10/2016 Lon Shields R.N. Medication Administered: DILAUDID [IVP] (HYDROMORPHONE HCL PF), Dose: 1 mg IVP over 2 minute(s), Site: #1 right forearm. Medication Ordered: Dilaudid IV 1 mg + 0.5 mg (NOW). Given 23:39 03/10/2016 Alize Cornelius R.N. Medication Administered: DILAUDID [IVP] (HYDROMORPHONE HCL PF), Dose: 0.5 mg IVP over 30 minute(s), Site: #1 right forearm. Medication Ordered: Dilaudid IV 0.5 mg (HIGH ALERT MEDICATION, NOW). Start 00:20 03/11/2016 Alize Cornelius R.N. Medication Administered: CEFTRIAXONE [IVPB], Dose: 1 gm IVPB over 20 minute(s), Rate: 150 mL/hr, Dispensed: 50 mL bag, Site: #1 right forearm. Medication Ordered: Ceftriaxone IV 1 gm/50mL (NOW).
--- NOTE | 2016-03-11 16:44 | ED MED RECONCILIATION SUMMARY ---
Patient: PRAVEEN KISER Medication Reconciliation Report [facility] VisitID: [id number] [place] [address] 31y, F Registration Date/Time: 03/10/2016 Weight: 63.5 kg Height/Length: 63 in. BMI: 24.8 ALLERGIES: Morphine and Related The patient's Home Medications are listed below: THE FOLLOWING MEDICATIONS NEED TO BE RECONCILED: Vitamins Oral The source(s) of the original Home Medication information: patient The following Medications were given to the patient in the Emergency Department: IV NS IV Fluids bolus 0, then 500 mL/hr, administered: 03/10/2016 9:30:00 PM Zofran [IVP] IVP 4 mg, administered: 03/10/2016 10:37:00 PM Dilaudid [IVP] IVP 1 mg, administered: 03/10/2016 10:42:00 PM Dilaudid [IVP] IVP 0.5 mg, administered: 03/10/2016 11:39:00 PM Ceftriaxone [IVPB] IVPB bolus 0, then 1 gm 150 mL/hr, administered: 03/11/2016 12:20:00 AM The following Medications were prescribed to the patient: Oxycodone/APAP 5 mg/325 mg: take 1 tablet orally every 4 hours as needed for pain. Dispense fifteen (15). No refill. -- Joselo Lopez MD Doxycycline 100 mg: Take 1 capsule orally every 12 hours for 10 days. No refill. -- Joselo Lopez MD
== END 2016-03-11 01:57 | disposition home or self-care (01) ==
LOC: ED SRH 20:40
DX: R10.33 Periumbilical pain (principal); R10.31 Right lower quadrant pain; N73.0 Acute parametritis and pelvic cellulitis; D64.9 Anemia, unspecified; N90.89 Other specified noninflammatory disorders of vulva and perineum; F17.200 Nicotine dependence, unspecified, uncomplicated
CPT/HCPCS: 81460; 90001; 90004; 90100; 90155; 90197; 91227; 91228; 92760; 92761; 92762; 92763; 92764; 92765; 92766; 92767; 93070; 95059; 98480

== ENCOUNTER → 2016-08-29 | Emergency (ER) | payer OTHER ==
--- NOTE | 2016-08-29 23:15 | ED NURSING NOTES ---
Clinical Report - Nurses [facility] [address] [place] [address] 08/29/2016 22:36 Patient: PRAVEEN KISER TRIAGE Triage time 22:27. Acuity: LEVEL 4. Chief Complaint: LEFT EAR PAIN. 23:11 08/29/16. Alert. No acute distress. MAGALY COMA SCORE: [place] Coma Scale: 15- eyes open spontaneously (4); best verbal response- oriented x 4 (5); best motor response- obeys commands (6). --23:11 Antonia Fay R.N. 23:03 08/29/16. BP: 113/68 taken on the left arm, while sitting. HR: 76. RR: 15. O2 saturation: 100% on room air. Temp: 98.2 F. Pain level now: 08/01. --23:11 Antonia Fay R.N. Weight: 61.2 kg stated. Height/Length: 63 inches Per Patient. BMI: 23.9. --23:06 Antonia Fay R.N. Medications None. --23:05 Antonia Fay R.N. Allergies Morphine and Related.(itching) --23:05 Antonia Fay R.N. History Arrived by private vehicle. Historian: patient. Onset. (a week ago). ( skin problem on L leg). 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 PAST MEDICAL HX: Immunizations: status is unknown. SOCIAL HX: Heavy tobacco smoker- less than 1 pack per day. History of drug use: methamphetamines. (patient states she hasnt used in 4 days). No alcohol use. FALL RISK ASSESSMENT: Fall risk assessment completed. No fall risk identified. NUTRITIONAL RISK ASSESSMENT: The nutritional risk assessment revealed no deficiencies. FUNCTIONAL ASSESSMENT: Functional assessment: no impairments noted. LEARNING NEEDS ASSESSMENT: The learning needs assessment revealed no barriers. SKIN INTEGRITY ASSESSMENT: Skin integrity risk assessment completed. No skin integrity risk identified. --23:11 Antonia Fay R.N. PROBLEMS: Pelvic Inflammatory Disease. Abdominal Pain. Induced Hypertension. Problems. Lumbar Strain. Abdominal Muscle Strain. Kidney Infection. UTI - Urinary Tract Infection. --23:06 Antonia Fay R.N. ADDITIONAL SURGERIES: . --23:06 Antonia Fay R.N. Interventions ID band on patient. To treatment room. --23:11 Antonia Fay R.N. PHYSICAL ASSESSMENT 23:13 08/29/16. Ambulatory to room. GENERAL / NEURO / PSYCH: Alert. Appears in no acute distress. HEENT: Erythema and pain upon movement of the left auricle. Right ear within normal limits. RESPIRATORY: Respirations not labored. CVS: Capillary refill less than 2 seconds. SKIN: Skin is warm and dry. Tender, weeping, crusting skin rash with an erythematous base located on the left leg. --23:13 Antonia Fay R.N. NURSING PROGRESS NOTES 23:13 08/29/16. Patient gowned. Two patient identifiers checked. Call light placed in reach. Side rails up x 1. Bed placed in lowest position. Brakes of bed on. --23:13 Antonia Fay R.N. 23:43 08/29/2016 Bactrim DS (Sulfamethoxazole-TMP DS) PO Tablets 1 tab given. Allergies verified and confirmed 5 rights. --23:43 Antonia Fay R.N. 00:12 08/30/2016 Tdap IM 0.5 mL (NOW, per protocol) was refused by patient (patient left prior to administration). Antonia Fay --02:12 Antonia Fay R.N. DISPOSITION / DISCHARGE 00:12. The patient left the Emergency Department without completion of treatment; patient was unaccompanied. The patient appears to be alert and oriented x4. Gown found on bed. Unable to locate patient. The patient did not notify the ED staff prior to leaving the department. The patient left the Emergency Department ambulatory. ( patient asked to go to bathroom before tdap shot and discharge. This RN left room while patient ambulated to bathroom. Upon returning to room, found gown on bed and was unable to find the patient. Patient took all papers on her clipboard, including prescription and discharge papers.). --02:10 Antonia Fay R.N. 02:05 08/30/16. BP: unable to obtain due to patient not present. HR: unable to obtain due to patient not present. RR: unable to obtain due to patient not present. O2 saturation: unable to obtain due to patient not present. Temp: unable to obtain due to patient not present. Pain level now unable to obtain due to patient not present. --02:10 Antonia Fay R.N. Locked/Released at 08/30/2016 2:12 by Antonia Fay R.N.
--- NOTE | 2016-08-29 23:15 | ED NURSING NOTES ---
Clinical Report - Nurses [facility] [address] [place] [address] 08/29/2016 22:36 Patient: PRAVEEN KISER TRIAGE Triage time 22:27. Acuity: LEVEL 4. Chief Complaint: LEFT EAR PAIN. 23:11 08/29/16. Alert. No acute distress. MAGALY COMA SCORE: [place] Coma Scale: 15- eyes open spontaneously (4); best verbal response- oriented x 4 (5); best motor response- obeys commands (6). --23:11 Antonia Fay R.N. 23:03 08/29/16. BP: 113/68 taken on the left arm, while sitting. HR: 76. RR: 15. O2 saturation: 100% on room air. Temp: 98.2 F. Pain level now: 08/01. --23:11 Antonia Fay R.N. Weight: 61.2 kg stated. Height/Length: 63 inches Per Patient. BMI: 23.9. --23:06 Antonia Fay R.N. Medications None. --23:05 Antonia Fay R.N. Allergies Morphine and Related.(itching) --23:05 Antonia Fay R.N. History Arrived by private vehicle. Historian: patient. Onset. (a week ago). ( skin problem on L leg). 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 PAST MEDICAL HX: Immunizations: status is unknown. SOCIAL HX: Heavy tobacco smoker- less than 1 pack per day. History of drug use: methamphetamines. (patient states she hasnt used in 4 days). No alcohol use. FALL RISK ASSESSMENT: Fall risk assessment completed. No fall risk identified. NUTRITIONAL RISK ASSESSMENT: The nutritional risk assessment revealed no deficiencies. FUNCTIONAL ASSESSMENT: Functional assessment: no impairments noted. LEARNING NEEDS ASSESSMENT: The learning needs assessment revealed no barriers. SKIN INTEGRITY ASSESSMENT: Skin integrity risk assessment completed. No skin integrity risk identified. --23:11 Antonia Fay R.N. PROBLEMS: Pelvic Inflammatory Disease. Abdominal Pain. Induced Hypertension. Problems. Lumbar Strain. Abdominal Muscle Strain. Kidney Infection. UTI - Urinary Tract Infection. --23:06 Antonia Fay R.N. ADDITIONAL SURGERIES: . --23:06 Antonia Fay R.N. Interventions ID band on patient. To treatment room. --23:11 Antonia Fay R.N. PHYSICAL ASSESSMENT 23:13 08/29/16. Ambulatory to room. GENERAL / NEURO / PSYCH: Alert. Appears in no acute distress. HEENT: Erythema and pain upon movement of the left auricle. Right ear within normal limits. RESPIRATORY: Respirations not labored. CVS: Capillary refill less than 2 seconds. SKIN: Skin is warm and dry. Tender, weeping, crusting skin rash with an erythematous base located on the left leg. --23:13 Antonia Fay R.N. NURSING PROGRESS NOTES 23:13 08/29/16. Patient gowned. Two patient identifiers checked. Call light placed in reach. Side rails up x 1. Bed placed in lowest position. Brakes of bed on. --23:13 Antonia Fay R.N. 23:43 08/29/2016 Bactrim DS (Sulfamethoxazole-TMP DS) PO Tablets 1 tab given. Allergies verified and confirmed 5 rights. --23:43 Antonia Fay R.N. 00:12 08/30/2016 Tdap IM 0.5 mL (NOW, per protocol) was refused by patient (patient left prior to administration). Antonia Fay --02:12 Antonia Fay R.N. DISPOSITION / DISCHARGE 00:12. The patient left the Emergency Department without completion of treatment; patient was unaccompanied. The patient appears to be alert and oriented x4. Gown found on bed. Unable to locate patient. The patient did not notify the ED staff prior to leaving the department. The patient left the Emergency Department ambulatory. ( patient asked to go to bathroom before tdap shot and discharge. This RN left room while patient ambulated to bathroom. Upon returning to room, found gown on bed and was unable to find the patient. Patient took all papers on her clipboard, including prescription and discharge papers.). --02:10 Antonia Fay R.N. 02:05 08/30/16. BP: unable to obtain due to patient not present. HR: unable to obtain due to patient not present. RR: unable to obtain due to patient not present. O2 saturation: unable to obtain due to patient not present. Temp: unable to obtain due to patient not present. Pain level now unable to obtain due to patient not present. --02:10 Antonia Fay R.N. Locked/Released at 08/30/2016 2:12 by Antonia Fay R.N.
--- NOTE | 2016-08-29 23:15 | ED ORDER SUMMARY ---
..... Patient: PRAVEEN KISER OrderSheet [facility] VisitID: [id number] [place] [address] 31y, F Registration Date/Time: 08/29/2016 ORDER SHEET Weight: 61.2 kg (stated) Allergies: Morphine and Related GENERAL ORDERS: MEDICATION ORDERS: Bactrim DS PO (Tablet 800-160 mg) 1 tab (NOW) (23:03 08/29/2016 Neal P.A.-C) (Ack 23:17 RMarsden R.N.) (23:43 RMarsden R.N.) Tdap IM 0.5 mL (NOW, per protocol) (23:07 08/29/2016 Neal Hutton.A.-C) (Ack 23:17 RMarsden R.N.) IV FLUIDS: ORDER SHEET NOTES: [Electronically signed by Marivel Lozoya P.A.-C (23:36 08/29/2016)] [Electronically signed by Antonia Fay R.N. (02:12 08/30/2016)] [Electronically locked/signed by Antonia Fay R.N. (02:12 08/30/2016)]
--- NOTE | 2016-08-29 23:15 | ED CLINICAL REPORT ---
Clinical Report - Physicians/Mid Levels [facility] [address] [place] [address] 08/29/2016 22:36 Patient: PRAVEEN KISER Time Seen: 22:57 Aug 29 2016. Arrived- By private vehicle. Historian- patient. HISTORY OF PRESENT ILLNESS Chief Complaint: EARACHE. 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 Location- left ear. The pain is described as mild. No ear pain or drainage. (Pain to left ear for 7-10 days, reports popping sensation. Has had some water activity. Denies any drainage. Patient has been over the past, most recently. In addition patient reports lesions to her left lower extremity. Denies history of MRSA. Denies any recent use of antibiotics.). REVIEW OF SYSTEMS No fever, chills, cough, difficulty breathing or headache. No nausea, vomiting, diarrhea or abdominal pain. All systems otherwise negative, except as recorded above. SOCIAL HISTORY Smoker- current status unknown. 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 No alcohol use. ADDITIONAL NOTES The nursing notes have been reviewed. PHYSICAL EXAM Vital Signs: 08/29/2016 23:03 BP: 113/68. HR: 76. RR: 15. O2 saturation: 100%. Temp: 98.2 F. Pain level now: 6/10. Appearance: Alert. Eyes: Eyes normal inspection. Throat: Pharynx normal. No pharyngeal erythema or mouth ulcerations. Nose: Nose normal. Ear (left): There is swelling of the external canal and material in the external canal. No pain with movement of the auricle, erythema of the tympanic membrane or dullness of the tympanic membrane. No TM tube seen. Normal mastoid. Neck: Normal inspection. CVS: Normal heart rate and rhythm. Heart sounds normal. Respiratory: No respiratory distress. Breath sounds normal. Back: Normal inspection. No CVA tenderness. Skin: (small lateral lesions of erythema on left le, not overlying any joint, mild warmth, no fluctulance.). PROGRESS AND PROCEDURES Course of Care: Patient is stable. Symptoms better. Patient/family counseled. Disposition: Discharged. CLINICAL IMPRESSION Acute left otitis externa. Cellulitis of the left lower leg. INSTRUCTIONS Drink plenty of fluids. (call for follow up with your PCP in 3-4 days). Warnings: TETANUS: You were given a tetanus shot during your visit. Make a note for future reference. Prescription Medications: Bactrim DS 800 mg / 160 mg: take 1 tablet orally every 12 hours for 10 days. No refill. Substitution is permissible. Neomycin/Polymyxin/Dexamethasone 0.1% op. susp (5ml bottle): instill 4 drops 4 x daily for 10 days. Understanding of the discharge instructions verbalized by patient. (Electronically signed by Marivel Lozoya P.A.-C 08/29/2016 23:36) Addenda for PRAVEEN KISER VisitID: [id number] Date: 08/29/2016 08/29/2016 23:36 Procedure: Left wick placed, no coplications, no bleeding, tolerated well. (Electronically signed by Marivel Lozoya P.A.-C - 08/29/2016 23:36)
--- NOTE | 2016-08-29 23:15 | ED CLINICAL REPORT ---
Clinical Report - Physicians/Mid Levels [facility] [address] [place] [address] 08/29/2016 22:36 Patient: PRAVEEN KISER Time Seen: 22:57 Aug 29 2016. Arrived- By private vehicle. Historian- patient. HISTORY OF PRESENT ILLNESS Chief Complaint: EARACHE. This started 7 - 10 days RADIO TALK SHOW HOST and is still present. Location- left ear. The pain is described as mild. No ear pain or drainage. (Pain to left ear for 7-10 days, reports popping sensation. Has had some water activity. Denies any drainage. Patient has been over the past, most recently. In addition patient reports lesions to her left lower extremity. Denies history of MRSA. Denies any recent use of antibiotics.). REVIEW OF SYSTEMS No fever, chills, cough, difficulty breathing or headache. No nausea, vomiting, diarrhea or abdominal pain. All systems otherwise negative, except as recorded above. SOCIAL HISTORY Smoker- current status unknown. 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 No alcohol use. ADDITIONAL NOTES The nursing notes have been reviewed. PHYSICAL EXAM Vital Signs: 08/29/2016 23:03 BP: 113/68. HR: 76. RR: 15. O2 saturation: 100%. Temp: 98.2 F. Pain level now: 6/10. Appearance: Alert. Eyes: Eyes normal inspection. Throat: Pharynx normal. No pharyngeal erythema or mouth ulcerations. Nose: Nose normal. Ear (left): There is swelling of the external canal and material in the external canal. No pain with movement of the auricle, erythema of the tympanic membrane or dullness of the tympanic membrane. No TM tube seen. Normal mastoid. Neck: Normal inspection. CVS: Normal heart rate and rhythm. Heart sounds normal. Respiratory: No respiratory distress. Breath sounds normal. Back: Normal inspection. No CVA tenderness. Skin: (small lateral lesions of erythema on left le, not overlying any joint, mild warmth, no fluctulance.). PROGRESS AND PROCEDURES Course of Care: Patient is stable. Symptoms better. Patient/family counseled. Disposition: Discharged. CLINICAL IMPRESSION Acute left otitis externa. Cellulitis of the left lower leg. INSTRUCTIONS Drink plenty of fluids. (call for follow up with your PCP in 3-4 days). Warnings: TETANUS: You were given a tetanus shot during your visit. Make a note for future reference. Prescription Medications: Bactrim DS 800 mg / 160 mg: take 1 tablet orally every 12 hours for 10 days. No refill. Substitution is permissible. Neomycin/Polymyxin/Dexamethasone 0.1% op. susp (5ml bottle): instill 4 drops 4 x daily for 10 days. Understanding of the discharge instructions verbalized by patient. (Electronically signed by Marivel Lozoya P.A.-C 08/29/2016 23:36) Addenda for PRAVEEN KISER VisitID: [id number] Date: 08/29/2016 08/29/2016 23:36 Procedure: Left wick placed, no coplications, no bleeding, tolerated well. (Electronically signed by Marivel Lozoya P.A.-C - 08/29/2016 23:36)
--- NOTE | 2016-08-29 23:15 | ED ORDER SUMMARY ---
..... Patient: PRAVEEN KISER OrderSheet [facility] VisitID: [id number] [place] [address] 31y, F Registration Date/Time: 08/29/2016 ORDER SHEET Weight: 61.2 kg (stated) Allergies: Morphine and Related GENERAL ORDERS: MEDICATION ORDERS: Bactrim DS PO (Tablet 800-160 mg) 1 tab (NOW) (23:03 08/29/2016 Neal P.A.-C) (Ack 23:17 RMarsden R.N.) (23:43 RMarsden R.N.) Tdap IM 0.5 mL (NOW, per protocol) (23:07 08/29/2016 Neal Hutton.A.-C) (Ack 23:17 RMarsden R.N.) IV FLUIDS: ORDER SHEET NOTES: [Electronically signed by Marivel Lozoya P.A.-C (23:36 08/29/2016)] [Electronically signed by Antonia Fay R.N. (02:12 08/30/2016)] [Electronically locked/signed by Antonia Fay R.N. (02:12 08/30/2016)]
--- NOTE | 2016-08-30 02:12 | ED MED RECONCILIATION SUMMARY ---
Patient: PRAVEEN KISER Medication Reconciliation Report [facility] VisitID: [id number] [place] [address] 31y, F Registration Date/Time: 08/29/2016 Weight: 61.2 kg Height/Length: 63 in. BMI: 23.9 ALLERGIES: Morphine and Related The patient's Home Medications are listed below: NONE. The source(s) of the original Home Medication information: Not obtained. The following Medications were given to the patient in the Emergency Department: Bactrim DS [PO] PO 1 tab, administered: 08/29/2016 11:43:00 PM The following Medications were prescribed to the patient: Neomycin/Polymyxin/Dexamethasone0.1% op. susp (5ml bottle): instill 4 drops 4 x daily for 10 days. -- Marivel Lozoya, P.A.-C Bactrim DS 800 mg / 160 mg: take 1 tablet orally every 12 hours for 10 days. No refill. Substitution is permissible. -- Marivel Lozoya, P.A.-C
--- NOTE | 2016-08-30 02:12 | ED MED RECONCILIATION SUMMARY ---
Patient: PRAVEEN KISER Medication Reconciliation Report [facility] VisitID: [id number] [place] [address] 31y, F Registration Date/Time: 08/29/2016 Weight: 61.2 kg Height/Length: 63 in. BMI: 23.9 ALLERGIES: Morphine and Related The patient's Home Medications are listed below: NONE. The source(s) of the original Home Medication information: Not obtained. The following Medications were given to the patient in the Emergency Department: Bactrim DS [PO] PO 1 tab, administered: 08/29/2016 11:43:00 PM The following Medications were prescribed to the patient: Neomycin/Polymyxin/Dexamethasone0.1% op. susp (5ml bottle): instill 4 drops 4 x daily for 10 days. -- Marivel Lozoya, P.A.-C Bactrim DS 800 mg / 160 mg: take 1 tablet orally every 12 hours for 10 days. No refill. Substitution is permissible. -- Marivel Lozoya, P.A.-C
--- NOTE | 2016-08-30 02:12 | ED MAR SUMMARY ---
..... Medication Administration Record [facility] [address] [place] [address] Patient: PRAVEEN KISER Visit ID: [id number] 31y, F Weight: 61.2 kg Height/Length: 63 in BMI: 23.9 ALLERGIES: Morphine and Related Given 23:43 08/29/2016 Antonia Fay R.N. Medication Administered: BACTRIM DS [PO] (SULFAMETHOXAZOLE-TMP DS), Dose: 1 tab Tablets PO. Medication Ordered: Bactrim DS PO (Tablet 800-160 mg) 1 tab (NOW).
--- NOTE | 2016-08-30 02:12 | ED DISCHARGE INSTRUCTIONS ---
Patient: PRAVEEN KISER General Instructions [facility] VisitID: [id number] [place] [address] 31y, F Registration Date/Time: 08/29/2016 Acute left otitis externa. Cellulitis of the left lower leg. INSTRUCTIONS Drink plenty of fluids. (call for follow up with your PCP in 3-4 days). Warnings: TETANUS: You were given a tetanus shot during your visit. Make a note for future reference. Prescription Medications: Bactrim DS 800 mg / 160 mg: take 1 tablet orally every 12 hours for 10 days. No refill. Substitution is permissible. Neomycin/Polymyxin/Dexamethasone 0.1% op. susp (5ml bottle): instill 4 drops 4 x daily for 10 days. Understanding of the discharge instructions verbalized by patient. ADDITIONAL INFORMATION External Ear Infection [Adult] This is an infection in the ear canal due to an overgrowth of bacteria or fungus. This often occurs a few days after water gets trapped in the ear canal (swimming or bathing). It may also occur after cleaning too deeply in the ear canal with a cotton swab or other object. Sometimes hair care products get into the ear canal and cause this problem. There may be itching, redness, drainage, or swelling of the ear canal and temporary loss of hearing. Home Care: Do not try to clean the ear canal. That could push pus and bacteria deeper into the canal. Use the drops prescribed to reduce swelling and fight the infection. If an EAR WICK was placed in the ear canal, apply drops right onto the end of the wick. The wick will draw the medicine into the ear canal even if it is swollen closed. Do not allow water to get into your ear when bathing. No swimming during this time. A cotton ball may be loosely placed in the outer ear to absorb any drainage. You may use acetaminophen (Tylenol) or ibuprofen (Motrin, Advil) to control pain, unless another medicine was prescribed. [NOTE: If you have chronic liver or kidney disease or ever had a stomach ulcer or GI bleeding, talk with your doctor before using these medicines.] Preventing Future Infections: You can usually avoid this problem by using an eardrop that removes the water from your ear canal when you feel there is water trapped there. You can get these drops over the counter (Swim Ear, Aqua Ear and other brands). Follow Up with your doctor or this facility in one week or as instructed by our staff. Get Prompt Medical Attention if any of the following occur: Ear pain becomes worse or does not begin to improve after 3 days of treatment Redness or swelling of the outer ear occurs or gets worse Headache, painful or stiff neck, Feeling drowsy or confused Fever of 100.4F (38C) or higher, or as directed by your healthcare provider Seizure Cellulitis You have an infection of the skin known as cellulitis. This usually starts with a scrape, cut, insect bite, blister or other opening in the skin which becomes infected. This is a serious condition. It must be watched closely to be sure the infection is not spreading. With antibiotic treatment, the size of the red area will gradually shrink in size until the skin returns to normal. This will take 7-10 days. The red area should never increase in size once the antibiotic medicine has been started. Occasionally, an infection will be resistant to one antibiotic and another one will have to be used. Home Care: 1) Limit the use of the affected part, since excess movement can cause the infection to spread. 2) If the infection is on your leg, walk as little as possible during the first few days of the treatment. Keep your leg elevated while sitting. This will reduce swelling. 3) Take all of the antibiotic medicine exactly as directed until it is gone. Be careful not to miss any doses, especially during the first seven days. Follow Up with your doctor or this facility as directed. Check the infected area daily for the warning signs listed below. Get Prompt Medical Attention if any of the following occur: -- Spreading area of redness -- Increasing swelling or pain -- Appearance of pus or drainage -- Fever over 100.4 F (38.0 C) oral, or over 101.4 F (38.6 C) rectal, after two days on antibiotics Diphtheria Toxoid Adsorbed, Pertussis Vaccine, Acellular (Adsorbed), Tetanus Toxoid, Adsorbed Suspension for injection What is this medicine? DIPHTHERIA and TETANUS TOXOIDS; PERTUSSIS VACCINE (dif THEER ee and TET n us TOK soids; per TUS iss vak SEEN) is used to prevent diphtheria, tetanus, and pertussis infections. How should I use this medicine? This vaccine is for injection into a muscle. It is given by a health urgent care physician assistant. A copy of Vaccine Information Statements will be given before each vaccination. Read this sheet carefully each time. The sheet may change frequently. Talk to your plasterer rough regarding the use of this vaccine in children. While the DTP vaccine may be given to children ages 6 weeks to 7 years and the Tdap vaccine may be given to children at least 10 years old, precautions do apply. What side effects may I notice from receiving this medicine? Side effects that you should report to your doctor or health urgent care physician assistant as soon as possible: allergic reactions like skin rash, itching or hives, swelling of the face, lips, or tongue breathing problems fever of 103 degrees F or more flu-like symptoms inconsolable crying infection pain, tingling, numbness in the hands or feet seizures swelling of arm or leg that was injected unusually weak or tired Side effects that usually do not require immediate medical attention (report these side effects to your doctor or health urgent care physician assistant if they continue or are bothersome): fussy, irritable loss of appetite fever of 102 degrees F or less pain, tenderness, redness, swelling, or a 'knot' at site where injected vomiting What may interact with this medicine? immune globulin medicines that suppress your immune function like adalimumab, anakinra, infliximab medicines to treat cancer medicines that treat or prevent blood clots like warfarin, enoxaparin, and dalteparin steroid medicines like prednisone or cortisone What if I miss a dose? It is important not to miss your dose. Call your doctor or health urgent care physician assistant if you are unable to keep an appointment. Where should I keep my medicine? This drug is given in a hospital or clinic and will not be stored at home. What should I tell my health care provider before I take this medicine? They need to know if you have any of these conditions: blood disorders like hemophilia fever or infection immune system problems neurologic disease seizures an unusual or allergic reaction to vaccines, thimerosal, latex, other medicines, foods, dyes, or preservatives or trying to get breast-feeding What should I watch for while using this medicine? See your health care provider for all shots of this vaccine as directed. To have protection from infection, you must have 3 shots of this vaccine plus boosters as needed. Tell your doctor right away if you have any serious or unusual side effects after getting this vaccine. Sulfamethoxazole, Trimethoprim Oral tablet What is this medicine? SULFAMETHOXAZOLE; TRIMETHOPRIM or SMX-TMP (suhl fuh meth OK yair zohl; trye METH oh prim) is a combination of a sulfonamide antibiotic and a second antibiotic, trimethoprim. It is used to treat or prevent certain kinds of bacterial infections. It will not work for colds, flu, or other viral infections. How should I use this medicine? Take this medicine by mouth with a full glass of water. Follow the directions on the prescription label. Take your medicine at regular intervals. Do not take it more often than directed. Do not skip doses or stop your medicine early. Talk to your plasterer rough regarding the use of this medicine in children. Special care may be needed. This medicine has been used in children as young as 2 months of age. What side effects may I notice from receiving this medicine? Side effects that you should report to your doctor or health urgent care physician assistant as soon as possible: allergic reactions like skin rash or hives, swelling of the face, lips, or tongue breathing problems fever or chills, sore throat irregular heartbeat, chest pain joint or muscle pain pain or difficulty passing urine red pinpoint spots on skin redness, blistering, peeling or loosening of the skin, including inside the mouth unusual bleeding or bruising unusually weak or tired yellowing of the eyes or skin Side effects that usually do not require medical attention (report to your doctor or health urgent care physician assistant if they continue or are bothersome): diarrhea dizziness headache loss of appetite nausea, vomiting nervousness What may interact with this medicine? Do not take this medicine with any of the following medications: aminobenzoate potassium dofetilide metronidazole This medicine may also interact with the following medications: SANTHOSH inhibitors like benazepril, enalapril, lisinopril, and ramipril cyclosporine digoxin diuretics indomethacin medicines for diabetes methenamine methotrexate phenytoin potassium supplements pyrimethamine sulfinpyrazone tricyclic antidepressants warfarin What if I miss a dose? If you miss a dose, take it as soon as you can. If it is almost time for your next dose, take only that dose. Do not take double or extra doses. Where should I keep my medicine? Keep out of the reach of children. Store at room temperature between 20 to 25 degrees C (68 to 77 degrees F). Protect from light. Throw away any unused medicine after the expiration date. What should I tell my health care provider before I take this medicine? They need to know if you have any of these conditions: anemia asthma being treated with anticonvulsants if you frequently drink alcohol containing drinks kidney disease liver disease low level of folic acid or [id number]-[id number] dehydrogenase poor nutrition or malabsorption porphyria severe allergies thyroid disorder an unusual or allergic reaction to sulfamethoxazole, trimethoprim, sulfa drugs, other medicines, foods, dyes, or preservatives or trying to get breast-feeding What should I watch for while using this medicine? Tell your doctor or health urgent care physician assistant if your symptoms do not improve. Drink several glasses of water a day to reduce the risk of kidney problems. Do not treat diarrhea with over the counter products. Contact your doctor if you have diarrhea that lasts more than 2 days or if it is severe and watery. This medicine can make you more sensitive to the sun. Keep out of the sun. If you cannot avoid being in the sun, wear protective clothing and use a sunscreen. Do not use sun lamps or tanning beds/booths. You have been given the following additional information: External Ear Infection (Adult) Cellulitis Diphtheria Toxoid Adsorbed, Pertussis Vaccine, Acellular (Adsorbed), Tetanus Toxoid, Adsorbed Suspension for injection Sulfamethoxazole, Trimethoprim Oral tablet (Electronically signed by Marivel Lozoya P.A.-C 08/29/2016 23:36)
--- NOTE | 2016-08-30 02:12 | ED DISCHARGE INSTRUCTIONS ---
Patient: PRAVEEN KISER General Instructions [facility] VisitID: [id number] [place] [address] 31y, F Registration Date/Time: 08/29/2016 Acute left otitis externa. Cellulitis of the left lower leg. INSTRUCTIONS Drink plenty of fluids. (call for follow up with your PCP in 3-4 days). Warnings: TETANUS: You were given a tetanus shot during your visit. Make a note for future reference. Prescription Medications: Bactrim DS 800 mg / 160 mg: take 1 tablet orally every 12 hours for 10 days. No refill. Substitution is permissible. Neomycin/Polymyxin/Dexamethasone 0.1% op. susp (5ml bottle): instill 4 drops 4 x daily for 10 days. Understanding of the discharge instructions verbalized by patient. ADDITIONAL INFORMATION External Ear Infection [Adult] This is an infection in the ear canal due to an overgrowth of bacteria or fungus. This often occurs a few days after water gets trapped in the ear canal (swimming or bathing). It may also occur after cleaning too deeply in the ear canal with a cotton swab or other object. Sometimes hair care products get into the ear canal and cause this problem. There may be itching, redness, drainage, or swelling of the ear canal and temporary loss of hearing. Home Care: Do not try to clean the ear canal. That could push pus and bacteria deeper into the canal. Use the drops prescribed to reduce swelling and fight the infection. If an EAR WICK was placed in the ear canal, apply drops right onto the end of the wick. The wick will draw the medicine into the ear canal even if it is swollen closed. Do not allow water to get into your ear when bathing. No swimming during this time. A cotton ball may be loosely placed in the outer ear to absorb any drainage. You may use acetaminophen (Tylenol) or ibuprofen (Motrin, Advil) to control pain, unless another medicine was prescribed. [NOTE: If you have chronic liver or kidney disease or ever had a stomach ulcer or GI bleeding, talk with your doctor before using these medicines.] Preventing Future Infections: You can usually avoid this problem by using an eardrop that removes the water from your ear canal when you feel there is water trapped there. You can get these drops over the counter (Swim Ear, Aqua Ear and other brands). Follow Up with your doctor or this facility in one week or as instructed by our staff. Get Prompt Medical Attention if any of the following occur: Ear pain becomes worse or does not begin to improve after 3 days of treatment Redness or swelling of the outer ear occurs or gets worse Headache, painful or stiff neck, Feeling drowsy or confused Fever of 100.4F (38C) or higher, or as directed by your healthcare provider Seizure Cellulitis You have an infection of the skin known as cellulitis. This usually starts with a scrape, cut, insect bite, blister or other opening in the skin which becomes infected. This is a serious condition. It must be watched closely to be sure the infection is not spreading. With antibiotic treatment, the size of the red area will gradually shrink in size until the skin returns to normal. This will take 7-10 days. The red area should never increase in size once the antibiotic medicine has been started. Occasionally, an infection will be resistant to one antibiotic and another one will have to be used. Home Care: 1) Limit the use of the affected part, since excess movement can cause the infection to spread. 2) If the infection is on your leg, walk as little as possible during the first few days of the treatment. Keep your leg elevated while sitting. This will reduce swelling. 3) Take all of the antibiotic medicine exactly as directed until it is gone. Be careful not to miss any doses, especially during the first seven days. Follow Up with your doctor or this facility as directed. Check the infected area daily for the warning signs listed below. Get Prompt Medical Attention if any of the following occur: -- Spreading area of redness -- Increasing swelling or pain -- Appearance of pus or drainage -- Fever over 100.4 F (38.0 C) oral, or over 101.4 F (38.6 C) rectal, after two days on antibiotics Diphtheria Toxoid Adsorbed, Pertussis Vaccine, Acellular (Adsorbed), Tetanus Toxoid, Adsorbed Suspension for injection What is this medicine? DIPHTHERIA and TETANUS TOXOIDS; PERTUSSIS VACCINE (dif THEER ee and TET n us TOK soids; per TUS iss vak SEEN) is used to prevent diphtheria, tetanus, and pertussis infections. How should I use this medicine? This vaccine is for injection into a muscle. It is given by a health interior plant caretaker. A copy of Vaccine Information Statements will be given before each vaccination. Read this sheet carefully each time. The sheet may change frequently. Talk to your production superintendent hydro regarding the use of this vaccine in children. While the DTP vaccine may be given to children ages 6 weeks to 7 years and the Tdap vaccine may be given to children at least 10 years old, precautions do apply. What side effects may I notice from receiving this medicine? Side effects that you should report to your doctor or health interior plant caretaker as soon as possible: allergic reactions like skin rash, itching or hives, swelling of the face, lips, or tongue breathing problems fever of 103 degrees F or more flu-like symptoms inconsolable crying infection pain, tingling, numbness in the hands or feet seizures swelling of arm or leg that was injected unusually weak or tired Side effects that usually do not require immediate medical attention (report these side effects to your doctor or health interior plant caretaker if they continue or are bothersome): fussy, irritable loss of appetite fever of 102 degrees F or less pain, tenderness, redness, swelling, or a 'knot' at site where injected vomiting What may interact with this medicine? immune globulin medicines that suppress your immune function like adalimumab, anakinra, infliximab medicines to treat cancer medicines that treat or prevent blood clots like warfarin, enoxaparin, and dalteparin steroid medicines like prednisone or cortisone What if I miss a dose? It is important not to miss your dose. Call your doctor or health interior plant caretaker if you are unable to keep an appointment. Where should I keep my medicine? This drug is given in a hospital or clinic and will not be stored at home. What should I tell my health care provider before I take this medicine? They need to know if you have any of these conditions: blood disorders like hemophilia fever or infection immune system problems neurologic disease seizures an unusual or allergic reaction to vaccines, thimerosal, latex, other medicines, foods, dyes, or preservatives or trying to get breast-feeding What should I watch for while using this medicine? See your health care provider for all shots of this vaccine as directed. To have protection from infection, you must have 3 shots of this vaccine plus boosters as needed. Tell your doctor right away if you have any serious or unusual side effects after getting this vaccine. Sulfamethoxazole, Trimethoprim Oral tablet What is this medicine? SULFAMETHOXAZOLE; TRIMETHOPRIM or SMX-TMP (suhl fuh meth OK yair zohl; trye METH oh prim) is a combination of a sulfonamide antibiotic and a second antibiotic, trimethoprim. It is used to treat or prevent certain kinds of bacterial infections. It will not work for colds, flu, or other viral infections. How should I use this medicine? Take this medicine by mouth with a full glass of water. Follow the directions on the prescription label. Take your medicine at regular intervals. Do not take it more often than directed. Do not skip doses or stop your medicine early. Talk to your production superintendent hydro regarding the use of this medicine in children. Special care may be needed. This medicine has been used in children as young as 2 months of age. What side effects may I notice from receiving this medicine? Side effects that you should report to your doctor or health interior plant caretaker as soon as possible: allergic reactions like skin rash or hives, swelling of the face, lips, or tongue breathing problems fever or chills, sore throat irregular heartbeat, chest pain joint or muscle pain pain or difficulty passing urine red pinpoint spots on skin redness, blistering, peeling or loosening of the skin, including inside the mouth unusual bleeding or bruising unusually weak or tired yellowing of the eyes or skin Side effects that usually do not require medical attention (report to your doctor or health interior plant caretaker if they continue or are bothersome): diarrhea dizziness headache loss of appetite nausea, vomiting nervousness What may interact with this medicine? Do not take this medicine with any of the following medications: aminobenzoate potassium dofetilide metronidazole This medicine may also interact with the following medications: SANTHOSH inhibitors like benazepril, enalapril, lisinopril, and ramipril cyclosporine digoxin diuretics indomethacin medicines for diabetes methenamine methotrexate phenytoin potassium supplements pyrimethamine sulfinpyrazone tricyclic antidepressants warfarin What if I miss a dose? If you miss a dose, take it as soon as you can. If it is almost time for your next dose, take only that dose. Do not take double or extra doses. Where should I keep my medicine? Keep out of the reach of children. Store at room temperature between 20 to 25 degrees C (68 to 77 degrees F). Protect from light. Throw away any unused medicine after the expiration date. What should I tell my health care provider before I take this medicine? They need to know if you have any of these conditions: anemia asthma being treated with anticonvulsants if you frequently drink alcohol containing drinks kidney disease liver disease low level of folic acid or [id number] dehydrogenase poor nutrition or malabsorption porphyria severe allergies thyroid disorder an unusual or allergic reaction to sulfamethoxazole, trimethoprim, sulfa drugs, other medicines, foods, dyes, or preservatives or trying to get breast-feeding What should I watch for while using this medicine? Tell your doctor or health interior plant caretaker if your symptoms do not improve. Drink several glasses of water a day to reduce the risk of kidney problems. Do not treat diarrhea with over the counter products. Contact your doctor if you have diarrhea that lasts more than 2 days or if it is severe and watery. This medicine can make you more sensitive to the sun. Keep out of the sun. If you cannot avoid being in the sun, wear protective clothing and use a sunscreen. Do not use sun lamps or tanning beds/booths. You have been given the following additional information: External Ear Infection (Adult) Cellulitis Diphtheria Toxoid Adsorbed, Pertussis Vaccine, Acellular (Adsorbed), Tetanus Toxoid, Adsorbed Suspension for injection Sulfamethoxazole, Trimethoprim Oral tablet (Electronically signed by Marivel Lozoya P.A.-C 08/29/2016 23:36)
--- NOTE | 2016-08-30 02:12 | ED MAR SUMMARY ---
..... Medication Administration Record [facility] [address] [place] [address] Patient: PRAVEEN KISER Visit ID: [id number] 31y, F Weight: 61.2 kg Height/Length: 63 in BMI: 23.9 ALLERGIES: Morphine and Related Given 23:43 08/29/2016 Antonia Fay R.N. Medication Administered: BACTRIM DS [PO] (SULFAMETHOXAZOLE-TMP DS), Dose: 1 tab Tablets PO. Medication Ordered: Bactrim DS PO (Tablet 800-160 mg) 1 tab (NOW).
== END ==
LOC: ED SRH 22:35
DX: H60.502 Unspecified acute noninfective otitis externa, left ear (principal); L03.116 Cellulitis of left lower limb; Z88.6 Allergy status to analgesic agent